=== PATIENT | female | born 1940 | race Two or more races ===

== ENCOUNTER 2018-04-19 11:29 | Outpatient (CLI) | payer OTHER ==
[~2018-04-19 11:29] MED LIST: EVISTA60 MG PO; LIPITOR20 MG PO; TOPROL XL50 MG PO
== END 2018-04-19 11:37 | disposition home or self-care (01) ==
LOC: MAMO-SONO 11:29
DX: Z12.31 Encounter for screening mammogram for malignant neoplasm of breast (principal); Z87.898 Personal history of other specified conditions; C50.912 Malignant neoplasm of unspecified site of left female breast

== ENCOUNTER 2018-06-26 11:45 | Outpatient (CLI) | payer OTHER | END 2018-06-26 11:53 | disposition home or self-care (01) | LOC: SONOGRAMA 11:45 | DX: M77.02 Medial epicondylitis, left elbow (principal); M77.01 Medial epicondylitis, right elbow ==

== ENCOUNTER 2019-04-19 09:51 | Outpatient (CLI) | payer OTHER | END 2019-04-19 10:01 | disposition home or self-care (01) | LOC: MAMO-SONO 09:51 | DX: C50.912 Malignant neoplasm of unspecified site of left female breast (principal); N60.19 Diffuse cystic mastopathy of unspecified breast; Z12.31 Encounter for screening mammogram for malignant neoplasm of breast; Z87.898 Personal history of other specified conditions ==

== ENCOUNTER 2020-04-21 09:37 | Outpatient (CLI) | payer OTHER | END 2020-04-21 09:43 | disposition home or self-care (01) | LOC: MAMO-SONO 09:37 | PROVIDERS: ATTEND Internal Medicine Hematology & Oncology | DX: Z12.31 Encounter for screening mammogram for malignant neoplasm of breast (principal); N64.59 Other signs and symptoms in breast; N64.89 Other specified disorders of breast ==

== ENCOUNTER → 2020-07-15 | Outpatient (CLI) | payer OTHER | END | disposition home or self-care (01) | LOC: RAD 10:02 | PROVIDERS: ATTEND Physical Medicine & Rehabilitation | DX: M41.87 Other forms of scoliosis, lumbosacral region (principal); M16.0 Bilateral primary osteoarthritis of hip; M54.5 Low back pain ==

== ENCOUNTER 2020-07-31 08:03 | Outpatient (CLI) | payer OTHER | END 2020-07-31 08:09 | disposition home or self-care (01) | LOC: SONOGRAMA 08:03 → MAMO-SONO 08:15 | PROVIDERS: ATTEND Obstetrics & Gynecology | DX: N85.8 Other specified noninflammatory disorders of uterus (principal); D25.9 Leiomyoma of uterus, unspecified; N95.1 Menopausal and female climacteric states ==

== ENCOUNTER 2020-09-09 09:53 | Outpatient (CLI) | payer OTHER | END 2020-09-09 10:02 | disposition home or self-care (01) | LOC: RAD 09:53 | PROVIDERS: ATTEND Obstetrics & Gynecology | DX: Z01.811 Encounter for preprocedural respiratory examination (principal); N95.1 Menopausal and female climacteric states ==

== ENCOUNTER 2021-02-26 10:55 | Outpatient (CLI) | payer OTHER | END 2021-02-26 10:59 | disposition home or self-care (01) | LOC: RAD 10:55 | PROVIDERS: ATTEND Physical Medicine & Rehabilitation | DX: M41.85 Other forms of scoliosis, thoracolumbar region (principal); M54.5 Low back pain ==

== ENCOUNTER 2021-03-03 10:49 | Outpatient (CLI) | payer OTHER | END 2021-03-03 10:52 | disposition home or self-care (01) | LOC: RAD 10:49 | PROVIDERS: ATTEND Surgery Surgery of the Hand | DX: M15.0 Primary generalized (osteo)arthritis (principal) ==

== ENCOUNTER 2021-04-17 10:55 | Outpatient (CLI) | payer OTHER | END 2021-04-17 10:57 | disposition home or self-care (01) | LOC: SONOGRAMA 10:55 | PROVIDERS: ATTEND Obstetrics & Gynecology | DX: Q51.818 Other congenital malformations of uterus (principal); N95.0 Postmenopausal bleeding ==

== ENCOUNTER 2021-05-04 13:11 | Outpatient (CLI) | payer OTHER | END 2021-05-04 13:25 | disposition home or self-care (01) | LOC: MAMO-SONO 13:11 | PROVIDERS: ATTEND Internal Medicine Hematology & Oncology | DX: N64.59 Other signs and symptoms in breast (principal); Z12.31 Encounter for screening mammogram for malignant neoplasm of breast; Z80.8 Family history of malignant neoplasm of other organs or systems ==

== ENCOUNTER 2022-05-06 10:43 | Outpatient (CLI) | payer OTHER | END 2022-05-06 10:51 | disposition home or self-care (01) | LOC: MAMO-SONO 10:43 | PROVIDERS: ATTEND Internal Medicine Hematology & Oncology | DX: Z12.31 Encounter for screening mammogram for malignant neoplasm of breast (principal); Z85.3 Personal history of malignant neoplasm of breast; N83.201 Unspecified ovarian cyst, right side ==

== ENCOUNTER 2022-05-13 11:05 | Outpatient (CLI) | payer OTHER | END 2022-05-13 11:18 | disposition home or self-care (01) | LOC: TOM 11:05 | PROVIDERS: ATTEND Physical Medicine & Rehabilitation | DX: M25.551 Pain in right hip (principal) ==

== ENCOUNTER 2023-02-01 09:04 | Outpatient (CLI) | payer OTHER | END 2023-02-01 09:10 | disposition home or self-care (01) | LOC: SONOGRAMA 09:04 | PROVIDERS: ATTEND Physical Medicine & Rehabilitation | DX: M25.522 Pain in left elbow (principal) ==

== ENCOUNTER 2023-03-25 09:45 | Outpatient (CLI) | payer OTHER | END 2023-03-25 09:47 | disposition home or self-care (01) | LOC: RAD 09:45 | DX: M15.0 Primary generalized (osteo)arthritis (principal) ==

== ENCOUNTER 2023-04-07 12:06 | Outpatient (CLI) | payer OTHER | END 2023-04-07 12:10 | disposition home or self-care (01) | LOC: RAD 12:06 | DX: M25.561 Pain in right knee (principal); M25.562 Pain in left knee; M25.531 Pain in right wrist; M25.532 Pain in left wrist ==

== ENCOUNTER 2023-05-30 12:22 | Outpatient (CLI) | payer OTHER | END 2023-05-30 12:40 | disposition home or self-care (01) | LOC: MAMO-SONO 12:22 | PROVIDERS: ATTEND Internal Medicine | DX: D05.12 Intraductal carcinoma in situ of left breast (principal); Z12.31 Encounter for screening mammogram for malignant neoplasm of breast ==

== ENCOUNTER 2024-04-16 15:55 | Outpatient (CLI) | payer OTHER | END 2024-04-16 16:03 | disposition home or self-care (01) | LOC: RAD 15:55 | PROVIDERS: ATTEND Internal Medicine Pulmonary Disease | DX: J45.21 Mild intermittent asthma with (acute) exacerbation (principal) ==

== ENCOUNTER 2024-07-02 11:06 | Outpatient (CLI) | payer OTHER | END 2024-07-02 11:07 | disposition home or self-care (01) | LOC: MAMO-SONO 11:06 | PROVIDERS: ATTEND Obstetrics & Gynecology | DX: D05.12 Intraductal carcinoma in situ of left breast (principal); N60.11 Diffuse cystic mastopathy of right breast; N60.12 Diffuse cystic mastopathy of left breast; N83.201 Unspecified ovarian cyst, right side; Z12.31 Encounter for screening mammogram for malignant neoplasm of breast ==

== ENCOUNTER 2025-07-02 10:55 | Outpatient (CLI) | payer OTHER | END 2025-07-02 10:59 | disposition home or self-care (01) | LOC: MAMO-SONO 10:55 | PROVIDERS: ATTEND Internal Medicine | DX: N60.11 Diffuse cystic mastopathy of right breast (principal); N60.12 Diffuse cystic mastopathy of left breast; Z12.31 Encounter for screening mammogram for malignant neoplasm of breast ==